=== PATIENT | female | born 1980 | race Caucasian/White ===

== ENCOUNTER 2017-08-09 22:50 | Emergency (ER) | payer SELFPAY ==
[~2017-08-09] VITALS: Ht 162.6 cm; Wt 66.0 kg
[~2017-08-09 22:50] MED LIST: FERR27TA PO; PREN1TAB49 PO
[2017-08-09 23:11] VITALS: Ht 162.6 cm; Wt 66.0 kg
--- NOTE | 2017-08-10 00:03 | ERD ---
ER Documentation Chief Complaint Chief Complaint LEFT POINTER FINGER LAC HPI 37-year-old female presents 3 hour status post laceration to left second digit. Patient was grinding meat when the finger got caught between the blades. Last tetanus shot 4 years ago. No medical conditions. Denies numbness, tingling, loss of range of motion. Denies anticoagulant use. Has not taken any medications to relieve symptoms. No injury to other areas. Bleeding controlled from onset of injury. Tetanus status up-to-date. Patient has no other complaints and describes no other associated manifestations. Nursing notes have been reviewed and are consistent with history given. ROS All systems reviewed and are negative except as per history of present illness. Medications Home Meds Active Scripts Cephalexin* (Keflex*) 500 Mg Capsule, 500 MG PO QID for 7 Days, CAP Prov:JUAN DAVID LOTT PA-C 08/10/17 Sulfamethoxazole/Trimethoprim* (Bactrim Ds* Tablet) 1 Each Tablet, 1 TAB PO BID , #14 TAB Prov:JUAN DAVID LOTT PA-C 08/10/17 Reported Medications Ferrous Sulfate (Iron) 1 Tab Tablet, 1 TAB PO DAILY 05/02/11 Vits W-Ca,Fe,Fa(<1MG) () 1 Tab Tablet, 1 TAB PO DAILY 05/02/11 Allergies Allergies: Coded Allergies: No Known Allergy (Verified , 07/08/12) Physical Exam Vitals Vital Signs Date Time Temp Pulse Resp B/P Pulse Ox O2 Delivery O2 Flow Rate FiO2 08/09/17 23:11 98.9 71 20 123/80 100 Physical Exam Const: Well-appearing 37-year-old female in NAD Ext: No cyanosis, or edema. Full range of motion. Tendons intact. Skin: 2 cm horizontal laceration of the left second distal phalanx. Head: Atraumatic Eyes: Normal Conjunctiva. PERRLA, EOMI. Neck: Full range of motion..~ No meningismus. Resp: Equal chest expansion. No tripoding or use of accessory muscles. Cardio: Cap refill less than 2 seconds. Pulses 2+ bilaterally. N/V intact. Back: No midline or flank tenderness Neur: Awake and alert. Sensation intact. Psych: Normal Mood and Affect Results 24 hrs Current Medications Medications (Trade) Dose Ordered Sig/Jeri Route PRN Reason Start Time Stop Time Status Last Admin Dose Admin Acetaminophen/ Hydrocodone Bitart ([place] (5/325)) 1 tab ONCE ONCE PO 08/10/17 00:00 08/10/17 00:01 DC 08/10/17 00:06 Cefazolin Sodium (Ancef) 1 gm ONCE ONCE IM 08/10/17 01:00 08/10/17 01:01 DC 08/10/17 01:00 Lidocaine (Xylocaine 1% (Mdv) 20 ml) 20 ml ONCE ONCE SC 08/10/17 01:30 08/10/17 01:31 DC Acetaminophen/ Hydrocodone Bitart ([place] (5/325)) 1 tab ONCE ONCE PO 08/10/17 02:00 08/10/17 02:00 DC 08/10/17 01:42 Procedures/MDM Otherwise healthy 37-year-old female presenting 3 hours status post laceration to second left digit. Injury was in a edge grinder machine. Tetanus status up-to- date. X-ray was obtained and revealed the following: Acute, closed, minimally displaced extra-articular tuft fracture involving the distal phalanx of the left index finger with associated overlying laceration. I presented the case to my attending Dr. Sanchez who has suggested closure and 1 mg Ancef IM. Patient was given antibiotics. 3 mL of lidocaine without epi 1% was used to anesthetize the area using digital block. Adequate anesthesia. 4 4 -0 sutures were used with good approximation. No complications. Tendons and neurovascularly intact after procedure and splint application. No suspicion for neurovascular compromise. Most likely diagnosis is closed fracture and laceration. I have spoke with the patient regarding their condition and future management including the necessity for 2 day follow-up. They have verbally responded that they understand their status and treatment plan. The patients vitals are stable, and their current condition is appropriate for discharge. The patient will be given discharge instructions with return precautions. Discharge medications: Bactrim and Keflex Departure Diagnosis: Primary Impression: Laceration Condition: Stable Additional Instructions: You were seen in the emergency department for your laceration which has been closed. Your wound has been cleaned and covered with antibiotic ointment. Please keep this dressing on for 12 hours. After 12 hours take the dressing down and gently clean the wound with ONLY soap and water. If you were given antibiotics, complete the course of treatment as prescribed. Look for signs of infection such as increasing redness, swelling, pain or drainage of pus (yellow/ green fluid). If you see signs of infection, please return to the emergency department immediately. If there are no signs of infection, cover your wound with antibiotic ointment and reapply a dressing. You will form a scar. To keep from scarring too dark, keep your wound covered and out of the sun for the next 6-12 months. Consider using OTC anti-scar creams such as Mederma. Return to the ED for a wound check in 2 days and again for suture removal in 10-14 days. JUAN DAVID LOTT PA-C Aug 10, 2017 00:03
[2017-08-10] MEDS ORDERED: CEFAZOLIN 1 GM INJ IM ONE (01:00)
[2017-08-10] MEDS ORDERED: CEPH-443 PO (01:26)
[2017-08-10] MEDS ORDERED: SULF1TAB31 PO (01:26)
[2017-08-10] MEDS ORDERED: LIDOCAINE 1% (MDV) 20 ML INJ SC ONE (01:30)
[2017-08-10] MEDS ORDERED: HYDROCODONE/APAP (5/325) TAB PO ONE ×2 (02:00)
--- NOTE | 2017-08-10 06:53 | RADRPT ---
PROCEDURE: XR finger. CLINICAL INDICATION: Laceration left index finger TECHNIQUE: PA, oblique and lateral views of the left index finger were obtained. COMPARISON: None available. FINDINGS: Mineralization is within normal limits. Abnormal fracture lucency through the tuft of the distal pha langeal tip is present with approximately 2 mm of anterior displacement of the distal fracture fragm ent. Joint spaces are preserved. Soft tissue laceration about the distal phalanx is seen. No radio paque foreign body is present. RPTAT:HJJR IMPRESSION: Acute, closed, minimally displaced extra-articular tuft fracture involving the distal phalanx of the left index finger with associated overlying laceration. Physician Go Date Time Electronically viewed and signed by Physician Go on 08/10/2017 00:32 /
== END 2017-08-10 01:56 | disposition home or self-care (01) ==
LOC: FTE 22:50
DX: S61.211A Laceration without foreign body of left index finger without damage to nail, initial encounter (principal); W23.1XXA Caught, crushed, jammed, or pinched between stationary objects, initial encounter; Y92.9 Unspecified place or not applicable
CPT/HCPCS: 12001; 73140; 96372; 99284; J0690

== ENCOUNTER 2017-08-13 10:34 | Emergency (ER) | payer MEDICAID ==
[~2017-08-13] VITALS: Ht 160 cm; Wt 66.3 kg
[~2017-08-13 10:34] MED LIST changes: +CEPH-443 PO; +SULF1TAB31 PO
[2017-08-13 10:38] VITALS: Ht 160 cm; Wt 66.3 kg
--- NOTE | 2017-08-13 11:44 | ERD ---
ER Documentation Chief Complaint Chief Complaint left 2nd digit wound check (open fx x5 days) HPI This 37-year-old female presents with request for a recheck on her left index finger laceration and fracture. Injury was sustained 5 days ago. She has restricted range of motion weakness or redness or fever. She has not seen an orthopedist. She is taking Bactrim and Keflex ROS All systems reviewed and are negative except as per history of present illness. Medications Home Meds Active Scripts Cephalexin* (Keflex*) 500 Mg Capsule, 500 MG PO QID for 7 Days, CAP Prov:JUAN DAVID LOTT PA-C 08/10/17 Sulfamethoxazole/Trimethoprim* (Bactrim Ds* Tablet) 1 Each Tablet, 1 TAB PO BID , #14 TAB Prov:JUAN DAVID LOTT PA-C 08/10/17 Reported Medications Ferrous Sulfate (Iron) 1 Tab Tablet, 1 TAB PO DAILY 05/02/11 Vits W-Ca,Fe,Fa(<1MG) () 1 Tab Tablet, 1 TAB PO DAILY 05/02/11 Allergies Allergies: Coded Allergies: No Known Allergy (Verified , 07/08/12) PMhx/Soc Hx Alcohol Use: No Hx Substance Use: No Hx Tobacco Use: No Physical Exam Vitals Vital Signs Date Time Temp Pulse Resp B/P Pulse Ox O2 Delivery O2 Flow Rate FiO2 08/13/17 10:38 97.6 66 18 129/79 100 Physical Exam Const: [] Alert, [id number]. Head: Atraumatic Eyes: Normal Conjunctiva ENT: Normal External Ears, Nose and Mouth. Neck: Full range of motion..~ No meningismus. Resp: Clear to auscultation bilaterally Cardio: Regular rate and rhythm, no murmurs Abd: Soft, non tender, non distended. Normal bowel sounds Skin: No petechiae or rashes Back: No midline or flank tenderness Ext: No cyanosis, or edema. Healing laceration on the pad or lateral aspect of the distal left index finger. Patient has full range of motion of the PIP and DIP and MCP without evidence of ischemia or deficits. There is no erythema or discharge. Neur: Awake and alert Psych: Normal Mood and Affect Procedures/MDM Patient presents with a satisfactorily healing laceration on the left index finger without signs of infection, deficits or complication. By history she has an open fracture and is taking Bactrim and Keflex and she continue Bactrim and Keflex. Patient had her wound redressed and was replaced in a metal splint. Patient was counseled on the need for follow-up with orthopedist for evaluation of the healing fracture. There is no currently evidence of complications and patient will be discharged home with instructions for suture removal in 5 days otherwise orthopedist as directed. Departure Diagnosis: Primary Impression: Encounter for wound re-check Condition: Stable Patient Instructions: Wound Check, Lac F/U (No Infection) Referrals: [facility] Additional Instructions: Examines normal hoy. CHEQUE 5 [place] MAS PARA SACAR [place]. Va al monte doctor / specialista DE [place] para mas evaluacon en el proximo semana. posiblemente necesita autorizado de monte doctor primario para specialista. Regresa para fiebre, o mas o nueva simptomas. LISA LITTLE MD Aug 13, 2017 11:44
== END 2017-08-13 11:55 | disposition home or self-care (01) ==
LOC: FTE 10:34
DX: Z48.01 Encounter for change or removal of surgical wound dressing (principal)
CPT/HCPCS: 99281